=== PATIENT | male | born 1955 | race Caucasian/White ===

== ENCOUNTER → 2017-05-22 | Outpatient (CLI) | payer OTHER | END | disposition home or self-care (01) | LOC: C.RDSM 13:18 | PROVIDERS: ATTEND Physical Medicine & Rehabilitation Sports Medicine | DX: M19.012 Primary osteoarthritis, left shoulder (principal) ==

== ENCOUNTER → 2017-06-15 | Outpatient (CLI) | payer OTHER ==
[~2017-06-15] MED LIST: AMLO-114 PO; ASPI81TA28 PO; BENA1TAB53 PO; CALC-51 PO; CIPR-255 PO; FINA5TAB PO; FLM4 PO; MULT-506 PO; NAPR1TAB9 PO; OMEG10007 PO; OXYC-57 PO; PHEN-775 PO; ROSU5TAB PO; VITACAP26 PO; VITAMIN B PO; VITAMIN D PO; VITAMIN E PO
--- NOTE | 2017-06-15 09:08 | DIAGNOSTIC IMAGING REPORT ---
Left knee 4 views including bilateral standing AP views CLINICAL HISTORY: OSTEOARTHRITIS OF LEFT KNEE COMPARISON: None DISCUSSION: Standing AP views reveal postsurgical changes of a total right knee arthroplasty. On the left there is chondrocalcinosis. There is mild spurring at the level of the condylar notch. There are advanced arthritic changes within the patellofemoral joint with lateral patellar tilt, and near total cartilaginous loss of the lateral patellofemoral joint. IMPRESSION: 1. No acute fractures 2. Chondrocalcinosis 3. Severe osteoarthritic changes within the patellofemoral joint Electronically signed by: Arvin Martinez M.D. 06/15/2017 9:07 AM Dictated Date/Time: 06/15/2017 9:05 AM
== END | disposition home or self-care (01) ==
LOC: C.RDSM 08:39
PROVIDERS: ATTEND Physician Assistant
DX: M17.12 Unilateral primary osteoarthritis, left knee (principal); M11.262 Other chondrocalcinosis, left knee

== ENCOUNTER 2017-07-20 11:00 | Day surgery (SDC) | payer OTHER ==
[2017-07-05 09:07] VITALS: BMI 32.0
--- NOTE | 2017-07-05 09:42 | PAT Medication Instructions ---
Service Date Jul 05, 2017. Current Home Medication List Amlodipine (Norvasc), 10 MG PO QAM Aspirin (Aspirin Ec), 81 MG PO QAM Benazepril (Lotensin), 40 MG PO QAM Finasteride (Proscar), 5 MG PO QPM Fish Oil (Underwood-3), 1 CAP PO QAM Multivitamin (Multivitamin), 1 TAB PO QAM Naproxen (Aleve), 440 MG PO BID PRN for RN Rosuvastatin Calcium (Crestor), 5 MG PO QPM Tamsulosin HCl (Tamsulosin HCl), 0.4 MG PO QPM Vitamins C & E (Vitamin C), 1 TAB PO QAM [Calcium], 1 TAB PO QAM [Vitamin B], 1 TAB PO QAM [Vitamin D], 1 TAB PO QAM [Vitamin E], 1 TAB PO QAM Medication Instructions For Your Scheduled Surgery - Hold the following medications 2 weeks prior to surgery: [Vitamin E], 1 TAB PO QAM - Hold the following medications per surgeon's instructions: Aspirin (Aspirin Ec), 81 MG PO QAM Naproxen (Aleve), 440 MG PO BID PRN for RN - Hold the following medications the morning of surgery: Vitamins C & E (Vitamin C), 1 TAB PO QAM [Calcium], 1 TAB PO QAM [Vitamin B], 1 TAB PO QAM [Vitamin D], 1 TAB PO QAM Benazepril (Lotensin), 40 MG PO QAM Multivitamin (Multivitamin), 1 TAB PO QAM Fish Oil (Underwood-3), 1 CAP PO QAM - Take the following medications the morning of surgery with a sip of water: Amlodipine (Norvasc), 10 MG PO QAM - Take the following medications as scheduled the night before surgery: Rosuvastatin Calcium (Crestor), 5 MG PO QPM Tamsulosin HCl (Tamsulosin HCl), 0.4 MG PO QPM Finasteride (Proscar), 5 MG PO QPM If you have any questions please call us at [phone] or [phone] or [phone]
--- NOTE | 2017-07-05 10:39 | DIAGNOSTIC IMAGING REPORT ---
CHEST 2 VIEWS ROUTINE CLINICAL HISTORY: Preoperative evaluation. COMPARISON STUDY: No previous studies for comparison. FINDINGS: There is mild elevation of the right hemidiaphragm. No pneumothorax or pleural effusion is present. There is no consolidation or evidence for pulmonary edema. Cardiomediastinal silhouette is normal. IMPRESSION: No acute cardiopulmonary findings. Electronically signed by: David Darling M.D. 07/05/2017 10:38 AM Dictated Date/Time: 07/05/2017 10:38 AM
[2017-07-05 10:42] LABS: BASO % 0.2 %; BASO ABS # 0.01 K/uL (0-0.2); EOS % 2.4 %; EOS ABS # 0.12 K/uL (0-0.5); HEMATOCRIT 44.5 % (42-52); HEMOGLOBIN 15.6 g/dL (14.0-18.0); IG# 0.01 K/uL (0.00-0.02); LYMPH % 42.9 %; LYMPH ABS # 2.19 K/uL (1.2-3.4); MEAN CELL VOLUME 94.9 fL (80-100); MEAN CORPUSCULAR HEMOGLOBIN 33.3 pg (25-34); MEAN CORPUSCULAR HGB CONC 35.1 g/dl (32-36); MEAN PLATELET VOLUME 10.4 fL (7.4-10.4); MONO % 11.4 %; MONO ABS # 0.58 K/uL (0.11-0.59); NEUT % 42.9 %; NEUT ABS # 2.19 K/uL (1.4-6.5); PLATELET COUNT 186 K/uL (130-400); RED CELL DISTRIBUTION WIDTH CV 12.2 % (11.5-14.5); RED CELL DISTRIBUTION WIDTH SD 42.2 fL (36.4-46.3)
[2017-07-05 11:45] LABS: CALCIUM 9.1 mg/dl (8.5-10.1); CREATININE 1.07 mg/dl (0.60-1.40); POTASSIUM 4.9 mmol/L (3.5-5.1)
[~2017-07-20] VITALS: Ht 188 cm; Wt 112.0 kg
[~2017-07-20 11:00] MED LIST changes: -CIPR-255 PO; +CIPROFLOXACIN / D5W 400 MG IV SCH; +LACTATED RINGER'S 1000ML 1,000 ML IV SCH; -OXYC-57 PO; -PHEN-775 PO
--- NOTE | 2017-07-20 11:28 | History & Physical Bridge Note ---
H&P Re-Evaluation Bridge Note: I have examined the patient, reviewed the History & Physical and in the interval since the performance of the History & Physical I have noted the following changes of clinical significance: No changes noted
[2017-07-20 11:30] VITALS: BP 160/97; PULSE 82; TEMP 36.5; O2SAT 96; Ht 188 cm; Wt 112.0 kg
[2017-07-20] MEDS ORDERED: MIDAZOLAM HCL 1 MG/ML 2ML VIAL ONE (12:58)
[2017-07-20] MEDS ORDERED: FENTANYL CITRATE INJ 50 MCG/1 ML 2 ML VIAL ONE (12:58)
[2017-07-20] MEDS ORDERED: OXYC-57 PO ×2 (13:03)
[2017-07-20] MEDS ORDERED: PHEN-775 PO ×2 (13:03)
[2017-07-20] MEDS ORDERED: CIPR-255 PO ×2 (13:03)
--- NOTE | 2017-07-20 13:07 | Discharge Instructions ---
Discharge Instructions Date of Service Jul 20, 2017. Admission Reason for Admission: Benign Prostatic Hypertrophy Discharge Discharge Diagnosis / Problem: BPH s/p Urolift Discharge Goals Goal(s): Improve disease control, Therapeutic intervention Activity Recommendations Activity Limitations: as noted below Lifting Limitations: no more than 25 pounds, gradually increase as tolerated Exercise/Sports Limitations: rest today, gradually increase as tolerated May Resume Sexual Activity: after two weeks Shower/Bathe: no limitations Driving or Machine Use: resume 1 day after discharge . Instructions / Follow-Up Instructions / Follow-Up As scheduled for postoperative check in office Current Hospital Diet Patient's current hospital diet: Discharge Diet Recommended Diet: Regular Diet (good fluid intake) Procedures Procedures Performed: Cystoscopy, Urolift Pending Studies Studies pending at discharge: no Medical Emergencies . Who to Call and When: Medical Emergencies: If at any time you feel your situation is an emergency, please call 911 immediately. . Non-Emergent Contact Non-Emergency issues call your: Urologist Call Non-Emergent contact if: you have a fever, temperature is above 101, your pain is not controlled, your pain is worsening, your pain is unusual for you, your pain is concerning you, you have any medication questions . . "Provider Documentation" section prepared by Byron Muñoz. . VTE Core Measure Inpt VTE Proph given/why not?: SCD's [place] Drug Monitoring Program Search Results: patient reviewed within database, see additional documentation (last narcotic Rx in Feb 2017)
[2017-07-20] MEDS ORDERED: LIDOCAINE HCL 2% 2 ML VIAL (20MG/ML) ONE (13:23)
[2017-07-20] MEDS ORDERED: PROPOFOL IV EMULSION 10 MG/ML 20 ML VIAL IV ONE (13:23)
[2017-07-20] MEDS ORDERED: OXYCODONE/ACETAMINOPHEN 5-325 TAB PO PRN (13:30)
[2017-07-20] MEDS ORDERED: PHENAZOPYRIDINE HCL 200 MG TAB PO PRN (13:30)
--- NOTE | 2017-07-20 13:30 | [facility] Post Operative Brief Note ---
Immediate Operative Summary Operative Date Jul 20, 2017. Pre-Operative Diagnosis Benign prostatic hyperplasia With Lower urinary tract symptoms Post-Operative Diagnosis Benign prostatic hyperplasia With Lower urinary tract symptoms Procedure(s) Performed Cystoscopy, Urolift Surgeon Dr. Byron Muñoz Lube Man Surgeon(s) None Estimated Blood Loss 10 ml Findings Consistent with Post-Op Diagnosis Specimens None per surgeon Drains None Anesthesia Type MAC Complication(s) none Disposition Accompanied Pt To Recover: no Disposition: Recovery Room / PACU
--- NOTE | 2017-07-20 13:31 | [facility] Operative Report ---
Operative Report Operative Date Jul 20, 2017. Pre-Operative Diagnosis Benign prostatic hyperplasia With Lower urinary tract symptoms Post-Operative Diagnosis Benign prostatic hyperplasia With Lower urinary tract symptoms Procedure(s) Performed Cystoscopy, Urolift Surgeon Dr. Byron Muñoz Roll Former Surgeon(s) None Estimated Blood Loss 10 ml Findings Open fossa after 4 tacks Specimens None per surgeon Drains None Anesthesia Type MAC Complication(s) none Disposition no Recovery Room / PACU Indications 61-year-old male with bothersome voiding symptoms who has chosen Urolift to manage his disease. Please see H&P for further details. Intravenous ciprofloxacin provided for antibiotic coverage and SCDs used for DVT prophylaxis. Description of Procedure Patient was properly identified and brought into the operative suite after identification of appropriate consent in the chart. Monitored anesthesia care with sedation was initiated and the patient was prepped and draped in standard fashion for this procedure. Full timeout procedure was followed. Urolift rigid scope was introduced into the bladder under direct visualization. Patient was noted to have a short, obstructive prostate gland. Bladder was surveyed demonstrating grade 1 trabeculation with no intravesical lesions, papillary masses or calculi. Urolift tacks were used at the level of the verumontanum seen the short prostate gland on both sides. Reevaluation with a visual obturator demonstrated relatively close proximity to the bladder neck. To assist with an anterior channel tomorrow Urolift tacks were placed superior to the first 2 to allow for improved opening of the urethra. Excellent unobstruction was appreciated after this was complete. Bladder was drained and cystoscope was removed. Anesthesia was reversed and patient was transferred to the recovery room in stable condition. Follow-up CARE: Patient will be discharged home after a trial of void today. Prescription for Percocet, Pyridium and ciprofloxacin as provided. Outpatient postoperative appointment is confirmed. Patient is to contact our service with any difficulties in the postoperative period. I attest to the content of the Intraoperative Record and any orders documented therein. Any exceptions are noted below.
[2017-07-20 13:40] VITALS: BP 140/88; PULSE 74; TEMP 36.4; O2SAT 95
[2017-07-20] MEDS ORDERED: PHENAZOPYRIDINE HCL 200 MG TAB PO ONE (14:06)
[2017-07-20 14:10] VITALS: BP 156/99; PULSE 72; TEMP 36.5; O2SAT 96
--- NOTE | 2017-07-20 14:28 | Anesthesiology Progress Note ---
Anesthesia Post Op Note Date & Time Jul 20, 2017 at 14:28 Vital Signs Pain Intensity: 0 Vital Signs Past 12 Hours Date Time Temp Pulse Resp B/P (MAP) Pulse Ox O2 Delivery O2 Flow Rate FiO2 07/20/17 13:40 36.4 74 18 140/88 95 Room Air 07/20/17 11:30 36.5 82 22 160/97 (118) 96 Room Air Notes Mental Status: alert / awake / arousable, participated in evaluation Pt Amnestic to Procedure: Yes Nausea / Vomiting: adequately controlled Pain: adequately controlled Airway Patency, RR, SpO2: stable & adequate BP & HR: stable & adequate Hydration State: stable & adequate Anesthetic Complications: no major complications apparent
--- NOTE | 2017-07-25 08:18 | EDITING REQUIRED CODING QUERY ---
CODING CLARIFICATION Further clarification is needed for the Urolift procedure for coding purposes. Please clarify below how many Urolift implants were placed during this procedure on 07/20/17: NUMBER OF UROLIFT IMPLANTS PLACED: 4 Thank you for your assistance, Petty Casarez - Laborer [employer]
== END 2017-07-20 14:28 | disposition home or self-care (01) ==
LOC: C.ACU 11:00
PROVIDERS: ATTEND Urology
DX: N40.1 Benign prostatic hyperplasia with lower urinary tract symptoms (principal); N13.8 Other obstructive and reflux uropathy; I10 Essential (primary) hypertension; E78.5 Hyperlipidemia, unspecified; M19.90 Unspecified osteoarthritis, unspecified site; N52.9 Male erectile dysfunction, unspecified; N48.6 Induration penis plastica; R35.1 Nocturia; Z88.0 Allergy status to penicillin; Z83.3 Family history of diabetes mellitus